=== PATIENT | male | born 1970 | race Caucasian/White ===

== ENCOUNTER 2017-09-15 19:17 | Inpatient (IN) ==
[2017-09-15] MEDS ORDERED: MORPHINE 4 MG/1 ML VIAL IV STA ×3 (20:08→20:39)
[2017-09-15] MEDS ORDERED: ONDANSETRON 4 MG/2 ML VIAL IV STA (20:11)
[2017-09-15] MEDS ORDERED: ONDANSETRON 4 MG/2 ML VIAL ONE (20:12)
[2017-09-15] MEDS ORDERED: MORPHINE 10 MG/1 ML VIAL ONE (20:13)
[2017-09-15 20:32] LABS: Basophils % 0.2 % (0.0-0.8); Eosinophils % 0.2 % (0.00-10.9); Hemoglobin 15.1 GM/DL (14.0-18.0); Immature Granulocytes % 0.5 %; Immature Granulocytes Absolute 0.08 #; Lymphocytes # 0.9 10*3/uL (1.4-4.0); Lymphocytes % 5.4 % (21.2-54.2); Mean Corpuscular HGB Conc 35.1 GM/DL (32-36); Mean Corpuscular Hemoglobin 33 PG (27-34); Mean Corpuscular Volume 93.7 FL (87-102); Mean Platelet Volume 10.3 FL (9.6-12.0); Monocytes # 0.8 10*3/uL (0.11-0.8); Monocytes % 4.9 % (1.7-12.7); Neutrophils # 14.7 10*3/uL (1.4-7.4); Neutrophils % 88.8 % (38.7-73.9); Platelet Count 212 T/CUMM (130-400); Red Blood Count 4.59 MC/CUMM (3.8-5.5); Red Cell Distribution Width 12.3 % (9.3-17.3); White Blood Count 16.5 T/CUMM (4-12)
[2017-09-15 20:41] LABS: INR 0.9; PT Patient Result 9.6 SECS
[2017-09-15 20:47] LABS: Calcium 8.6 MG/DL (8.5-10.1); Potassium 4.1 MMOL/L (3.5-5.1)
[2017-09-15] MEDS ORDERED: ONDANSETRON 4 MG/2 ML VIAL IM STA (22:49)
[2017-09-15] MEDS ORDERED: HYDROmorphone 2 MG/1 ML VIAL IV STA (22:49)
[2017-09-16] MEDS ORDERED: ONDANSETRON 4 MG/2 ML VIAL IV PRN (00:24)
[2017-09-16] MEDS: DEXTROSE 5% NACL 0.45% 1,000 ML IV SCH ×3 (00:40→17:45)
[2017-09-16] MEDS: HYDROmorphone 2 MG/1 ML VIAL IV PRN ×3 (02:03→12:24)
[2017-09-16] MEDS ORDERED: PANTOPRAZOLE 40 MG TABLET PO ONE (08:47)
[2017-09-16] MEDS ORDERED: DIAZEPAM 5 MG TABLET PO ONE (08:47)
[2017-09-16 12:01] LABS: Apearance,Urine CLEAR (Clear); Bilirubin,Urine Negative (Negative); Blood, Urine Negative (Negative); Glucose,Urine (UA) Negative (Negative); Ketones,Urine 5 mg/dL (Negative); Mucus,Urine Occasional /LPF (Occasional); Nitrite,Urine Negative (Negative); Protein,Urine Negative; RBC,Urine <1 /HPF (0-4); Squamous Epithelial Cell,Urine Occasional /HPF (0-10); Urine Color Yellow (Yellow); Urine Specific Gravity 1.016 (1.001-1.035); Urine Urobilinogen < 2.0 EU/DL (0.2-1.0); WBC,Urine <1 /HPF (0-6)
[2017-09-16] MEDS ORDERED: LIDOCAINE 2% TOP JELLY 20 ML VIAL INTRAURETH ONE (14:07)
[2017-09-16] MEDS ORDERED: HYDROmorphone 2 MG/1 ML VIAL ONE (16:23)
[2017-09-16] MEDS ORDERED: ONDANSETRON 4 MG/2 ML VIAL ONE (16:23)
[2017-09-16] MEDS ORDERED: DEXAMETHASONE 10 MG/1 ML VIAL ONE (16:23)
[2017-09-16] MEDS ORDERED: SEVOFLURANE 1 UNIT/15 MINUTE INH ONE (16:23)
[2017-09-16] MEDS ORDERED: PROPOFOL 200 MG/20 ML VIAL IV ONE (16:23)
[2017-09-16] MEDS ORDERED: fentaNYL 100 MCG/2 ML VIAL ONE (16:23)
[2017-09-16] MEDS ORDERED: MIDAZOLAM 2 MG/2 ML VIAL ONE (16:23)
[2017-09-16] MEDS ORDERED: MORPHINE 4 MG/1 ML VIAL IV PRN (16:24)
[2017-09-16] MEDS ORDERED: ROCURONIUM 100 MG/10 ML VIAL IV ONE (16:24)
[2017-09-16 16:59] LABS: Apearance,Urine CLEAR (Clear); Bilirubin,Urine Negative (Negative); Blood, Urine Small mg/dL (Negative); Glucose,Urine (UA) Negative (Negative); Ketones,Urine Negative (Negative); Mucus,Urine Occasional /LPF (Occasional); Nitrite,Urine Negative (Negative); Protein,Urine Negative; RBC,Urine 2 /HPF (0-4); Urine Color Straw (Yellow); Urine Specific Gravity 1.011 (1.001-1.035); Urine Urobilinogen < 2.0 EU/DL (0.2-1.0); WBC,Urine <1 /HPF (0-6)
[2017-09-17] MEDS: DEXTROSE 5% NACL 0.45% 1,000 ML IV SCH ×4 (01:20→21:29)
[2017-09-17] MEDS: ASPIRIN EC 325 MG TABLET PO SCH (09:41)
[2017-09-17] MEDS: ceFAZolin 1,000 MG in SYRINGE 1 EACH IV SCH ×2 (09:41→15:14)
[2017-09-17] MEDS: oxyCODONE/ACETAMINOPHEN 5-325 MG TABLET PO PRN (15:16)
[2017-09-18] MEDS: ceFAZolin 1,000 MG in SYRINGE 1 EACH IV SCH ×3 (00:07→15:26)
[2017-09-18] MEDS: oxyCODONE/ACETAMINOPHEN 5-325 MG TABLET PO PRN (03:55)
[2017-09-18] MEDS: DEXTROSE 5% NACL 0.45% 1,000 ML IV SCH ×3 (05:36→17:53)
[2017-09-18] MEDS: ASPIRIN EC 325 MG TABLET PO SCH (08:47)
[2017-09-18] MEDS ORDERED: traMADol 50 MG TABLET PO PRN (09:37)
[2017-09-18] MEDS ORDERED: ENOXAPARIN 40 MG/0.4 ML SYRINGE SUBCUT SCH (10:00)
[2017-09-18 16:43] VITALS: BP 129/77
== END 2017-09-18 20:02 | disposition home health service (06) | DRG 494 ==
LOC: EDUNIT# → EDBD → N.ED 19:17 → N.EDINP 21:17 → N.3E 22:37
PROVIDERS: ADMIT Orthopaedic Surgery; ATTEND Orthopaedic Surgery